=== PATIENT | male | born 1935 | race Caucasian/White ===

== ENCOUNTER → 2018-02-04 09:38 | Outpatient (CLI) | payer MEDICARE, BC, MEDICAID, SELFPAY ==
--- NOTE | 2018-02-04 09:54 | RAD_ITS ---
STUDY: X-RAY - CERVICAL SPINE REASON FOR EXAM: Male, 82 years old. Neck pain TECHNIQUE: 2 view(s) of the cervical spine were obtained. COMPARISON: None FINDINGS: Limited examination, only 2 views. No gross acute fracture or dislocation. 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 Normal curvature and alignment. Normal visualized soft tissues. RAD/Cerv Spine 2 or 3 Views IMPRESSION: Limited 2 view study of the spine shows degenerative changes and no definite acute abnormality. Electronically Signed: Ignacio Fiore MD at 15:43 EDT , Service support ,
--- NOTE | 2018-02-04 10:06 | RAD_ITS ---
STUDY: X-RAY - LUMBAR SPINE REASON FOR EXAM: Male, 82 years old. Chronic low back pain TECHNIQUE: 2 view(s) of the lumbar spine were obtained. COMPARISON: None FINDINGS: Very limited examination, only 2 views. There is also suboptimal positioning. No definite acute abnormality. Severe demineralization. Reversal of curvature. Grossly normal alignment. Moderate to severe multilevel degenerative changes. Multilevel large anterior osteophytes. Calcified aorta, cannot exclude fusiform aneurysm. RAD/Lumbar Spine 2 or 3 Views IMPRESSION: Significantly limited two-view study with suboptimal positioning shows no gross acute abnormality. Moderate to severe multilevel degenerative changes and possible aortic aneurysm. Electronically Signed: Ignacio Fiore MD at 15:44 EDT , Service support ,
== END ==
PROVIDERS: Family Provider Internal Medicine Infectious Disease; PCP Internal Medicine Infectious Disease; Visit Provider Anesthesiology Pain Medicine
DX: M51.36 Other intervertebral disc degeneration, lumbar region (principal); M50.322 Other cervical disc degeneration at C5-C6 level
CPT/HCPCS: 72040; 72100